=== PATIENT | female | born 1980 ===

== ENCOUNTER 2023-10-05 15:03 | Outpatient (REF) | payer OTHER, MEDICAID, SELFPAY ==
[2023-10-05 14:48] LABS: Abs Immature Grans 0.06 10^3/uL (0.0-0.06); Absolute Basophil Count 0.08 10^3/uL (0.0-0.2); Absolute Eosinophil Count 0.29 10^3/uL (0.0-0.7); Absolute Monocyte Count 0.31 10^3/uL (0.1-0.8); Absolute Neutrophil Count 3.41 10^3/uL (1.2-6.7); Basophils % 1.1; Eosinophils % 4.1; HCT 41.8 % (36.0-46.0); HGB 13.8 g/dL (11.2-15.7); Immature Grans % 0.8; MCV 85 fL (80-95); MPV 9.8 fL (8.0-11.0); Monocytes % 4.3; Neutrophils % 47.7; Platelet Count 273 10^3/uL (130-400); RBC 4.92 10^6/uL (3.93-5.22); RDW-SD 43.1 fL; WBC 7.15 10^3/uL (4.4-10.8)
[2023-10-05 15:16] LABS: ALT 48 U/L (14-59); AST 33 U/L (15-37); Albumin 3.8 g/dL (3.4-5.0); Alkaline Phosphatase 106 U/L (46-116); Anion Gap 12.1 mmol/L (3-11); BUN 14 mg/dL (7-18); Bilirubin, Total 0.8 mg/dL (0.2-1.0); CO2 24.9 mmol/L (21.0-32.0); CREATININE 0.9 mg/dL (0.55-1.02); Calcium 9.7 mg/dL (8.5-10.1); Calculated LDL 104 mg/dL (<100); Chloride 104 mmol/L (98-107); Cholesterol 208 mg/dL (<200); Estimated GFR 82.37 (mL/min/1.73m2); Glucose 149 mg/dL (74-106); HDL Cholesterol 40 mg/dL (40-60); Magnesium 2.1 mg/dL (1.8-2.4); Potassium 4.5 mmol/L (3.5-5.1); Sodium 141 mmol/L (136-145); TSH 1.77 uIU/mL (0.36-3.74); Triglyceride 320 mg/dL (<150)
[2023-10-05 15:29] LABS: Vitamin D 25 Total 11.4 ng/mL (30-100)
[2023-10-05 15:54] LABS: Hemoglobin A1C 6.3 % (<5.7)
== END 2023-10-05 15:04 | disposition home or self-care (01) ==
LOC: NCHCN 15:03
PROVIDERS: Visit Provider Family Medicine
DX: R73.03 Prediabetes (principal); E78.5 Hyperlipidemia, unspecified; E66.9 Obesity, unspecified; E61.2 Magnesium deficiency
CPT/HCPCS: 80053; 80061; 82306; 83036; 83735; 84443; 85025

== ENCOUNTER 2024-08-29 16:46 | Outpatient (REF) | payer OTHER, MEDICAID, SELFPAY | END 2024-08-29 16:47 | disposition home or self-care (01) | LOC: NCHCN 16:46 | PROVIDERS: Visit Provider Physician Assistant | DX: R30.0 Dysuria (principal); R82.89 Other abnormal findings on cytological and histological examination of urine | CPT/HCPCS: 87077; 87086; 87186 ==

== ENCOUNTER 2025-07-02 15:25 | Outpatient (REF) | payer OTHER, MEDICAID, SELFPAY ==
[2025-07-02 17:06] LABS: Cholesterol 171 mg/dL (<200); HDL Cholesterol 40 mg/dL (>40)
[2025-07-02 17:09] LABS: Vitamin D 25 Total 21 ng/mL (30-100)
[2025-07-02 17:10] LABS: TSH (W/Ref FT4) 0.67 uIU/mL (0.55-4.78)
== END 2025-07-02 15:26 | disposition home or self-care (01) ==
LOC: NCHCN 15:25
PROVIDERS: Visit Provider Family Medicine
DX: E55.9 Vitamin D deficiency, unspecified (principal); R53.83 Other fatigue; E78.5 Hyperlipidemia, unspecified
CPT/HCPCS: 80061; 82306; 84443